=== PATIENT | male | born 1965 | race Caucasian/White ===

== ENCOUNTER 2022-03-21 08:34 | Day surgery (SDC) | payer OTHER ==
[~2022-03-21] VITALS: Ht 165.1 cm; Wt 76.7 kg
[2022-03-21] MEDS ORDERED: BUPIVACAINE-MPF 0.25% 30 ML VIAL INJ ONE (09:14)
[2022-03-21] MEDS ORDERED: LIDOCAINE/EPI MPF 1%1:200000 30 ML VIAL INJ ONE (09:14)
[2022-03-21] MEDS ORDERED: SEVOFLURANE 250 ML BTL INH ONE (12:07)
[2022-03-21] MEDS ORDERED: fentaNYL citrate 0.05 MG/ML VIAL ONE (12:14)
[2022-03-21] MEDS ORDERED: PROPOFOL 200 MG/20 ML VIAL IV ONE ×2 (12:44)
[2022-03-21] MEDS ORDERED: ROCURONIUM 50 MG/5 ML VIAL IV ONE ×3 (12:46→13:09)
[2022-03-21] MEDS ORDERED: KETOROLAC 30 MG/ML VIAL ONE (12:47)
[2022-03-21] MEDS ORDERED: ONDANSETRON 4 MG/2 ML VIAL ONE (12:47)
[2022-03-21] MEDS ORDERED: MORPHINE SULFATE 4 MG/ML SYR IV PRN (13:30)
[2022-03-21] MEDS ORDERED: HYDROcodone/APAP 5/325 MG 1 TAB TAB PO PRN (13:30)
[2022-03-21] MEDS ORDERED: HYDROmorphone 1 MG/ML AMP IVP PRN (13:30)
[2022-03-21] MEDS ORDERED: ONDANSETRON 4 MG/2 ML VIAL IV PRN (13:30)
[2022-03-21] MEDS ORDERED: MORPHINE SULFATE 2 MG/ML SYR IVP PRN (13:30)
[2022-03-21] MEDS ORDERED: METOCLOPRAMIDE 10 MG/2 ML INJ VIAL IVP PRN (13:33)
[2022-03-21] MEDS ORDERED: hydrALAZINE 20 MG/ML VIAL IVP PRN (13:33)
[2022-03-21] MEDS ORDERED: LACTATED RINGERS 1,000 ML IV SCH ×2 (13:35)
[2022-03-21] MEDS ORDERED: NEOSTIGMINE 1:1000 10 MG/10 ML VIAL ONE (13:38)
[2022-03-21] MEDS ORDERED: GLYCOPYRROLATE 0.2 MG/ML VIAL ONE ×5 (13:38)
[2022-03-21] MEDS: HYDROmorphone 1 MG/ML AMP IVP PRN ×4 (13:55→14:25)
[2022-03-21] MEDS ORDERED: HYDROmorphone PFS 2 MG/ML SYR ONE (14:00)
== END 2022-03-21 15:50 | disposition home or self-care (01) ==
LOC: MDS 08:34 → MMU 08:34 → MDS 15:50
PROVIDERS: ATTEND Surgery
DX: K80.10 Calculus of gallbladder with chronic cholecystitis without obstruction (principal); E78.00 Pure hypercholesterolemia, unspecified; Z80.8 Family history of malignant neoplasm of other organs or systems
CPT/HCPCS: 36415; 47562; 71045; 82374; 86886; 86900; 86901; 87426; C1887; J0690; J1170; J1885; J2001; J2405; J2704; J2710; J3010; J3490; J7030; J7060; 93005